=== PATIENT | female | born 2000 | race African-American/Black ===

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

== ENCOUNTER 2020-01-09 18:15 | Emergency (ER) | payer MEDICAID ==
[~2020-01-09] VITALS: Ht 167.6 cm; Wt 81.6 kg
[2020-01-09 20:04] VITALS: BP 113/81
== END 2020-01-09 22:35 | disposition home or self-care (01) ==
LOC: ER 18:15
DX: R06.02 Shortness of breath (principal); R05 Cough; R53.81 Other malaise; Z20.828 Contact with and (suspected) exposure to other viral communicable diseases
CPT/HCPCS: 71045; 99284; U0003